=== PATIENT | female | born 1995 | race Two or more races ===

== ENCOUNTER → 2017-07-14 10:26 | Outpatient (CLI) | payer SELFPAY ==
[2017-07-19 11:37] LABS: HPV Reflexed? NOT INDICATED
== END ==
PROVIDERS: Visit Provider Obstetrics & Gynecology
DX: Z12.4 Encounter for screening for malignant neoplasm of cervix (principal); R87.612 Low grade squamous intraepithelial lesion on cytologic smear of cervix (LGSIL)
CPT/HCPCS: 88175; G0145

== ENCOUNTER → 2017-07-30 10:24 | Outpatient (CLI) | payer SELFPAY ==
--- NOTE | 2017-07-30 10:15 | CER_PTH ---
PATIENT: SIA MEMBRENO LOC: [facility] U#:[id number] AGE/SX: 29/F ROOM: RE07/30/[address]: Dr. Henri Buchanan MD : 1995 BED: DIS: SPEC #: [id number] RECD: 07/30/17 10:39 STATUS: CHINMAY HOLLIS #: [id number] CHARLIE: 07/30/17 10:[address]: Henri Buchanan DEPT: SURGICAL PATHOLOGY RECD BY: Dwight Moser Tissues: A - Uterine cervix, NOS B - Endocervical Procedures: Surgery Specimen Level IV HEADER OPERATION: Colposcopy PRE-OP DIAGNOSIS: LGSIL pap 07/14/17 TISSUE SUBMITTED: A ? Cervical biopsy 9 o?clock, B - ECC MICROSCOPIC DIAGNOSIS A. 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 Focal chronic inflammation. B. ECC: Fragments of benign endocervical epithelium, blood and mucous, negative for dysplasia. SJ:rg 4/13/18 COMMENT A. Transitional zone mucosa is present in the specimen. Please make reference to previous specimen ([id number]) cervix, 11 o?clock, biopsy with diagnosis of focal changes suggestive of HPV cytopathic effects. MICROSCOPIC DESCRIPTION Slides are reviewed. GROSS DESCRIPTION A - Received in fixative is one container labeled with the patient's name and designated cervical biopsy. The specimen consists of two irregular fragments of light macario soft tissue that in aggregate measure 0.6 x 0.3 x 0.1 cm. The specimen is totally submitted in one cassette. B - Received in fixative is one container labeled with the patient's name and designated ECC. The specimen consists of multiple fragments of hemorrhagic mucoid tissue that in aggregate measure 3 x 2.5 x 0.2 cm. The specimen is totally submitted in one cassette. / ESTEBAN:moses 07/30/17 TC:5 CPT: 23301 x2
== END ==
PROVIDERS: Visit Provider Obstetrics & Gynecology
DX: R87.612 Low grade squamous intraepithelial lesion on cytologic smear of cervix (LGSIL) (principal)
CPT/HCPCS: 88305